=== PATIENT | male | born 1955 | race Caucasian/White ===

== ENCOUNTER 2020-03-30 10:14 | Emergency (ER) | payer MEDICARE ==
[~2020-03-30] VITALS: Ht 175.3 cm; Wt 66.5 kg
[~2020-03-30 10:14] MED LIST: ACET-1008 PO; ATEN-168 PO; CLIN-91 PO; HYDR25TA5 PO; MAGN500C16 PO; NICO-631 TD; POTA10TA36 PO
[2020-03-30 10:26] VITALS: BP 184/97
== END 2020-03-30 12:27 | disposition home or self-care (01) ==
LOC: ER 10:16
DX: L02.414 Cutaneous abscess of left upper limb (principal); M79.601 Pain in right arm; F11.90 Opioid use, unspecified, uncomplicated; Z76.89 Persons encountering health services in other specified circumstances; Z98.890 Other specified postprocedural states; Z59.0 Homelessness; Z79.899 Other long term (current) drug therapy; Z79.2 Long term (current) use of antibiotics
CPT/HCPCS: 99281; 99282

== ENCOUNTER 2022-04-04 09:40 | Emergency (ER) | payer MEDICARE ==
[~2022-04-04] VITALS: Ht 170.2 cm; Wt 72.7 kg
[~2022-04-04 09:40] MED LIST changes: -ACET-1008 PO; -CLIN-91 PO; -MAGN500C16 PO; +MAGN500C4 PO; +POTA-206 PO; -POTA10TA36 PO
[2022-04-04 09:50] VITALS: BP 181/132
--- NOTE | 2022-04-04 10:28 | NUR ---
Hearing loss new x2 weeks.
[2022-04-04] MEDS ORDERED: NAPR-56 PO (11:05)
[2022-04-04] MEDS ORDERED: NEOM10DR45 EACH EAR (11:05)
[2022-04-04] MEDS ORDERED: CYCL-1 PO (11:05)
[2022-04-04] MEDS ORDERED: neomy sulf/polymyx B sulf/HC 10ml otic suspension EACH EAR ONE (11:05)
== END 2022-04-04 11:26 | disposition home or self-care (01) ==
LOC: ER 09:41
DX: H92.13 Otorrhea, bilateral (principal); F17.200 Nicotine dependence, unspecified, uncomplicated; M79.605 Pain in left leg; M54.59 Other low back pain; Z59.00 Homelessness unspecified; Z79.899 Other long term (current) drug therapy
CPT/HCPCS: 99284